=== PATIENT | male | born 1995 | race Asian ===

== ENCOUNTER → 2018-07-06 | Outpatient (CLI) | payer OTHER ==
--- NOTE | 2018-07-06 14:40 | RADIOLOGY REPORT (SQ) ---
EXAM DESCRIPTION: BARIUM SWALLOW ESOPHAGUS COMPLETED DATE/TIME: 07/06/2018 9:55 am REASON FOR STUDY: GERD (K21.9) K21.9 GASTRO-ESOPHAGEAL REFLUX DISEASE WITHOUT ESOPHAGITIS COMPARISON: None. TECHNIQUE: Under fluoroscopic guidance, patient ingested effervescent granules followed by thick and thin barium. Fluoroscopic spot images and routine radiographic images acquired and stored on PACS. 12 MM BARIUM TABLET GIVEN: The patient swallowed a 12 mm barium tablet which passed easily through th e esophagus and into the stomach without delay. LIMITATIONS: None. FLUOROSCOPY TIME: FLUORO TIME: 1.32 minutes 7 images saved to PACS. FINDINGS: NEUROMUSCULAR COORDINATION OF SWALLOW: Normal. No aspiration. ESOPHAGEAL MOTILITY: Normal peristalsis. No esophageal spasm. ESOPHAGEAL MUCOSA: Normal mucosa without masses or ulceration. GASTRO-ESOPHAGEAL JUNCTION: There is a small hiatal hernia present. Significant gastroesophageal ref lux was demonstrated. NON-GI TRACT STRUCTURES: No significant finding. OTHER: No other significant finding. IMPRESSION: SMALL HIATAL HERNIA WITH PROMINENT GASTROESOPHAGEAL REFLUX. OTHERWISE UNREMARKABLE STUD Y. RECOMMENDATION: NONE COMMENT: NONE Quality ID [id number]: Final reports for procedures using fluoroscopy that document radiation exposure alejandro liborio, or exposure time and number of fluorographic images (if radiation exposure indices are not avail able) TECHNICAL DOCUMENTATION: JOB ID: [id number] [employer]- All Rights Reserved Reading location - IP/workstation name: [email or web address] [id number]
== END ==
LOC: RAD 08:12
PROVIDERS: ATTEND Surgery
DX: K21.9 Gastro-esophageal reflux disease without esophagitis (principal)
CPT/HCPCS: 74220

== ENCOUNTER → 2018-07-13 | Day surgery (SDC) | payer OTHER ==
[~2018-07-13] MED LIST: LIDOCAINE 2% JELLY 5 ML TUBE ONE
== END ==
LOC: END 08:03
PROVIDERS: ATTEND Internal Medicine Gastroenterology
DX: K21.9 Gastro-esophageal reflux disease without esophagitis (principal)
CPT/HCPCS: 91010

== ENCOUNTER 2018-08-08 05:49 | Inpatient (IN) | payer OTHER ==
[2018-08-04 10:29] LABS: HEMATOCRIT 44.5 % (37.9-51.0); HEMOGLOBIN 15.3 g/dL (13.5-17.0); MEAN CORPUSCULAR HEMOGLOBIN 30.7 pg (27.0-33.4); MEAN CORPUSCULAR HGB CONC 34.4 g/dL (32.0-36.0); MEAN CORPUSCULAR VOLUME 89 fl (80-97); PLATELET COUNT 254 10^3/uL (150-450); RED BLOOD COUNT 4.97 10^6/uL (4.35-5.55); RED CELL DISTRIBUTION WIDTH 13.3 % (11.5-14.0); WHITE BLOOD COUNT 6.6 10^3/uL (4.0-10.5)
[2018-08-04 10:56] LABS: ANION GAP 13 (5-19); BLOOD UREA NITROGEN 13 mg/dL (7-20); CALCIUM 9.9 mg/dL (8.4-10.2); CARBON DIOXIDE 25 mmol/L (22-30); CHLORIDE 105 mmol/L (98-107); GLUCOSE 90 mg/dL (75-110); POTASSIUM 4.7 mmol/L (3.6-5.0); SODIUM 142.6 mmol/L (137-145)
[~2018-08-08 05:49] MED LIST changes: +ACETAMINOPHEN 325 MG TABLET PO PRN; +CEFOXITIN SODIUM 2 GM in DEXTROSE 5%-WATER 100 ML IV PRN; +LACTATED RINGERS 1000 ML IV PRN; +LIDOCAINE 0.5% INJ-PF (5 MG/ML) 50 ML SDV SUBCUT PRN; -LIDOCAINE 2% JELLY 5 ML TUBE ONE
[2018-08-08] MEDS ORDERED: ALBUTEROL SULFATE 0.083% NEB 2.5 MG/3 ML AMPUL NEB ONE (06:45)
[2018-08-08] MEDS ORDERED: BUPIVACAINE HCL 0.5 % INJ/PF 30 ML SDV ONE (06:55)
[2018-08-08] MEDS ORDERED: HYDROMORPHONE HCL INJ/PF 2 MG/ML AMPULE ONE (07:12)
[2018-08-08] MEDS ORDERED: ACETAMINOPHEN 1,000 MG/100 ML RTUPB IV ONE (07:13)
[2018-08-08] MEDS ORDERED: PROPOFOL INJ 200 MG/20 ML VIAL IV ONE (07:13)
[2018-08-08] MEDS ORDERED: FENTANYL CITRATE INJ/PF 100 MCG/2 ML AMPUL ONE (07:13)
[2018-08-08] MEDS ORDERED: MIDAZOLAM 2 MG/2 ML INJ ONE (07:13)
[2018-08-08] MEDS ORDERED: FAMOTIDINE INJ/PF 20 MG/2 ML SDV IV ONE (07:14)
[2018-08-08] MEDS ORDERED: PROMETHAZINE HCL INJ 25 MG/1 ML VIAL IV PRN (09:06)
[2018-08-08] MEDS ORDERED: MORPHINE SULFATE 10 MG/ML INJ IV PRN ×2 (09:06→11:53)
[2018-08-08] MEDS ORDERED: MEPERIDINE HCL/PF INJ 25 MG/1 ML DISP.SYRIN IV PRN (09:06)
[2018-08-08] MEDS ORDERED: DIPHENHYDRAMINE HCL 50 MG/ML VIAL IV PRN (09:06)
[2018-08-08] MEDS ORDERED: FENTANYL CITRATE INJ/PF 100 MCG/2 ML AMPUL IV PRN ×3 (09:06)
[2018-08-08] MEDS ORDERED: DEXTROSE 5%-LACTATED RINGERS 1,000 ML IV PRN (11:47)
[2018-08-08] MEDS ORDERED: ONDANSETRON HCL INJ/PF 4 MG/2 ML SDV IV PRN (11:47)
[2018-08-08] MEDS: FENTANYL CITRATE INJ/PF 100 MCG/2 ML AMPUL ONE ×2 (11:48→12:02)
[2018-08-08] MEDS ORDERED: HYDROCOD/ACETAMIN 7.5-325 MG/15 ML ORAL SOLN UDCUP PO PRN (11:52)
[2018-08-08] MEDS: HYDROMORPHONE HCL INJ/PF 2 MG/ML AMPULE ONE ×4 (12:16→12:50)
--- NOTE | 2018-08-08 12:16 | Operative Report ---
Nonrecallable Operative Report DATE OF SURGERY: 08/08/18 PREOPERATIVE DIAGNOSIS: 1. Refractory reflux. 2. Hiatal hernia. POSTOPERATIVE DIAGNOSIS: Same as above OPERATION: 1. Robot-assisted laparoscopic hiatal hernia repair with mesh. 2. Scott fundoplication. 3. EGD. SURGEON: JARED BECERRIL ANESTHESIA: GA TISSUE REMOVED OR ALTERED: None COMPLICATIONS: None apparent ESTIMATED BLOOD LOSS: Minimal PROCEDURE: Drains/implants: 10 x 6 cm Douglas Bio-A hiatal hernia mesh. Procedure in detail: After informed consent was obtained, the patient was brought to the operating room and laid in the supine position. The area of the abdomen was prepped and draped in normal sterile fashion. An incision was created approximately 2 cm superior and lateral to the umbilicus. Next, the dissection was carried through the subcutaneous tissue using sharp and blunt means. The anterior rectus sheath was incised sharply, the rectus muscle was spread, and the posterior sheath was incised sharply. The balloon trocar was inserted, and pneumoperitoneum was achieved. An 8 mm robotic trocar was placed in the left upper quadrant, right upper quadrant, and left lateral abdomen. A 5 mm trocar was placed in the right lateral abdomen. This was all done under direct laparoscopic visualization. The patient was placed in reverse Trendelenburg position. The liver retractor was placed through the 5 mm port. The left lobe of the liver was retracted anteriorly. Next the robot was brought over the patient and docked to the trochars. I then assumed my position at the surgeon's console. The dissection was begun at the pars flaccida. The pars flaccida was opened using electrocautery. The right júnior of the diaphragm was then identified and cleaned. This was done using judicious amounts of electrocautery and blunt dissection. The right júnior was cleaned from the anterior portion of the esophagus to the posterior extent of the defect. The dissection was carried laterally, to the left, in order to expose the bottom portion of the left júnior of the diaphragm. Once this was completed, attention was turned to division of the short gastrics. The stomach was elevated and the short gastrics were taken down from approximately the mid fundus up to the hiatus using the robotic vessel sealing device. Once this was completed, the posterior window was bluntly dissected. A [place] drain was then placed into the space posterior to the esophagus to aid in retraction. The anterior dissection was then undertaken , taking great care so as not to injure the vagus nerve. When the anterior dissection was completed, a 59 [place] bougie was placed into the esophagus as a place carlos. The 58 [place] bougie passed very easily into the esophagus. It was visualized to be within the esophagus via the laparoscopic camera. With the 58 [place] bougie in place, the esophagus was retracted laterally to the left and the posterior crura were reapproximated. 2-0 Ethibond suture were used in [id number] fashion to reapproximate the crura. Once this was completed a Douglas Bio-A hiatal hernia mesh was chosen to cover the repair. 1 cm was trimmed from the bottom, making the total measurement 6 x 10 cm. The mesh was placed over the crural repair. It was sutured to the repair using 2-0 Ethibond suture. It was sutured posteriorly and anteriorly. This was completed, the mesh was found to lie in good place. Next the fundoplication was undertaken. The fundus was passed posterior to the esophagus, leaving the 58 [place] bougie in place. A shoe-shine maneuver was performed. There was adequate room posterior to the esophagus to accommodate the fundus. There was found to be approximately 3 cm of intra-abdominal esophagus after the dissection and fundal wrap. The fundus was then sutured to the anterior esophagus and anterior stomach using 3-0 Ethibond suture. The first crural stitch incorporated the esophagus. 3 more sutures were used to complete the Scott fundoplication. Prior to the last suture being placed, the 58 [place] bougie was removed. The last suture was then placed into the fundoplication. The fundus was tacked to the hiatal hernia mesh using 3-0 Ethibond suture. An EGD was then undertaken. The flexible gastroscope was passed down the posterior oropharynx, down the esophagus, and into the stomach. The Z line appeared to lie within the intra- abdominal cavity. The scope slid easily through the hiatus. There was no obvious obstruction at the hiatus. The scope was passed into the stomach. Stomach was without obvious bleeding or defect. A retroflexion maneuver was performed, showing the fundoplication intact. The scope was then straightened, air was suctioned from the stomach, and the scope was pulled into the distal esophagus. The distal esophagus appeared normal without any melena, tears, or damage. It was pulled up the remainder of the esophagus, circumferentially noting the mucosa. The esophagus appeared normal, without injury. The scope was removed from the patient's oropharynx, and I scrubbed back into the case. The robot was undocked, the liver retractor was removed, and attention was turned to closure of the supraumbilical defect. The 12 mm trocar was removed. The defect was closed using 0 Vicryl suture in [id number] fashion with the Endo Close device. Once this was completed, the skin was closed using 4-0 Vicryl Rapide suture in subcuticular fashion. Dressings were placed, and the procedure was concluded. All sponge, instrument, and needle counts were correct x2. Condition: Stable.
[2018-08-08] MEDS ORDERED: ONDANSETRON HCL INJ/PF 4 MG/2 ML SDV ONE (13:32)
[2018-08-08] MEDS ORDERED: SUCCINYLCHOLINE CHLORIDE INJ 200 MG/10 ML VIAL ONE (13:32)
[2018-08-08] MEDS ORDERED: DEXAMETHASONE SOD PHOSPHATE INJ 4 MG/1 ML VIAL ONE (13:32)
[2018-08-08] MEDS ORDERED: GLYCOPYRROLATE 1 MG/5 ML SYRINGE ONE (13:32)
[2018-08-08] MEDS ORDERED: LIDOCAINE 2% INJ-PF (20 MG/ML) 2 ML AMPUL ONE (13:32)
[2018-08-08] MEDS ORDERED: ROCURONIUM BROMIDE INJ 50 MG/5 ML VIAL IV ONE (13:32)
[2018-08-08] MEDS ORDERED: NEOSTIGMINE METHYLSULFATE 10 MG/10 ML VIAL ONE (13:32)
[2018-08-08] MEDS: KETOROLAC TROMETHAMINE INJ/PF 30 MG/1 ML SDV IV SCH ×2 (14:25→21:42)
[2018-08-09] MEDS ORDERED: SIMETHICONE 80 MG TAB.CHEW PO PRN (05:32)
[2018-08-09] MEDS: KETOROLAC TROMETHAMINE INJ/PF 30 MG/1 ML SDV IV SCH ×3 (05:37→22:22)
[2018-08-09] MEDS ORDERED: SIMETHICONE 80 MG TAB.CHEW PO ONE (05:45)
[2018-08-09] MEDS ORDERED: LANSOPRAZOLE 30 MG TAB.RAP.DR PO SCH (06:00)
[2018-08-09 07:15] LABS: ABSOLUTE LYMPHOCYTES (AUTO) 1.7 10^3/uL (0.5-4.7); ABSOLUTE MONOCYTES (AUTO) 0.9 10^3/uL (0.1-1.4); ABSOLUTE NEUT (AUTO) 7.5 10^3/uL (1.7-8.2); BASOPHILS % (AUTO) 0.2 % (0-2); EOSINOPHILS % (AUTO) 0.4 % (0-6); HEMATOCRIT 41.4 % (37.9-51.0); HEMOGLOBIN 14.2 g/dL (13.5-17.0); LYMPHOCYTES % (AUTO) 16.8 % (13-45); MEAN CORPUSCULAR HEMOGLOBIN 30.9 pg (27.0-33.4); MEAN CORPUSCULAR HGB CONC 34.2 g/dL (32.0-36.0); MEAN CORPUSCULAR VOLUME 90 fl (80-97); MONOCYTES % (AUTO) 8.5 % (3-13); PLATELET COUNT 229 10^3/uL (150-450); RED BLOOD COUNT 4.58 10^6/uL (4.35-5.55); RED CELL DISTRIBUTION WIDTH 13.7 % (11.5-14.0); SEGMENTED NEUTROPHILS % (AUTO) 74.1 % (42-78); TOTAL CELLS COUNTED % (AUTO) 100 %; WHITE BLOOD COUNT 10.1 10^3/uL (4.0-10.5)
[2018-08-09 07:36] LABS: ANION GAP 12 (5-19); BLOOD UREA NITROGEN 7 mg/dL (7-20); CALCIUM 9.5 mg/dL (8.4-10.2); CARBON DIOXIDE 26 mmol/L (22-30); CHLORIDE 102 mmol/L (98-107); GLUCOSE 100 mg/dL (75-110); POTASSIUM 3.9 mmol/L (3.6-5.0); SODIUM 140.1 mmol/L (137-145)
--- NOTE | 2018-08-09 08:29 | RADIOLOGY REPORT (SQ) ---
EXAM DESCRIPTION: CHEST SINGLE VIEW COMPLETED DATE/TIME: 08/09/2018 8:12 am REASON FOR STUDY: pain with inspiration, s/p hiatal hernia repair COMPARISON: None. EXAM PARAMETERS: NUMBER OF VIEWS: One view. TECHNIQUE: Single frontal radiographic view of the chest acquired. RADIATION DOSE: NA LIMITATIONS: None. FINDINGS: LUNGS AND PLEURA: No opacities, masses or pneumothorax. No pleural effusion. MEDIASTINUM AND HILAR STRUCTURES: No masses. Contour normal. HEART AND VASCULAR STRUCTURES: Heart normal in size. Normal vasculature. BONES: No acute findings. HARDWARE: None in the chest. OTHER: No other significant finding. IMPRESSION: NO ACUTE RADIOGRAPHIC FINDING IN THE CHEST. TECHNICAL DOCUMENTATION: JOB ID: [id number] [employer]- All Rights Reserved Reading location - IP/workstation name: [email or web address]
[2018-08-09] MEDS ORDERED: ONDANSETRON HCL INJ/PF 4 MG/2 ML SDV IV PRN (10:30)
[2018-08-09] MEDS: HYDROCODONE/ACETAMINOPHEN 10-325 MG TABLET PO PRN ×2 (10:35→19:15)
--- NOTE | 2018-08-09 20:34 | PDOC PROGRESS REPORT ---
Subjective Progress Note for:: 08/09/18 Reason For Visit: S/P HIATAL HERNIA REPAIR Physical Exam Vital Signs: Temp Pulse Resp BP Pulse Ox 98.5 F 111 H 17 136/84 H 98 08/09/18 19:35 08/09/18 19:35 08/09/18 19:35 08/09/18 19:35 08/09/18 19:35 Intake & Output 08/08/18 08/09/18 08/10/18 06:59 06:59 06:59 Intake Total 0 4363 2018 Output Total 170 Balance 0 4193 2018 Weight 79.9 kg Results Laboratory Results: 08/09/18 06:22 08/09/18 06:22 08/09/18 08/09/18 06:22 06:22 WBC 10.1 RBC 4.58 Hgb 14.2 Hct 41.4 MCV 90 MCH 30.9 MCHC 34.2 RDW 13.7 Plt Count 229 Seg Neutrophils % 74.1 Lymphocytes % 16.8 Monocytes % 8.5 Eosinophils % 0.4 Basophils % 0.2 Absolute Neutrophils 7.5 Absolute Lymphocytes 1.7 Absolute Monocytes 0.9 Absolute Eosinophils 0.0 Absolute Basophils 0.0 Sodium 140.1 Potassium 3.9 Chloride 102 Carbon Dioxide 26 Anion Gap 12 BUN 7 Creatinine 0.67 Est GFR ( Amer) > 60 Est GFR (Non-Af Amer) > 60 Glucose 100 Calcium 9.5 Impressions: Chest X-Ray 08/09/18 06:00 IMPRESSION: NO ACUTE RADIOGRAPHIC FINDING IN THE CHEST. Assessment & Plan - Diagnosis (1) Hiatal hernia with gastroesophageal reflux Is this a current diagnosis for this admission?: Yes - Plan Summary Plan Summary: This is a 23-year-old male status post robot-assisted laparoscopic hiatal hernia repair with mesh and Scott fundoplication. The patient is swallowing very well. He is tolerating a full liquid diet. Patient still reports pain, requiring pain medications. He also reports abdominal distention. Patient does not feel like he is "ready to go home yet ". I will keep him 1 more day for pain control. I have encouraged him to ambulate. Plan for discharge home tomorrow.
[2018-08-10] MEDS ORDERED: LANSOPRAZOLE 30 MG TAB.RAP.DR PO SCH (06:00)
[2018-08-10] MEDS: KETOROLAC TROMETHAMINE INJ/PF 30 MG/1 ML SDV IV SCH (06:28)
--- NOTE | 2018-08-10 06:46 | PDOC DISCHARGE SUMMARY ---
General - Admit/Disc Date/PCP Admission Date/Primary Care Provider: 08/08/18 05:49 LINDA WHITE Discharge Date: 08/10/18 - Discharge Diagnosis (1) Hiatal hernia with gastroesophageal reflux Is this a current diagnosis for this admission?: Yes - Additional Information Discharge Diet: Full Liquids, Other (Comments) - No carbonated beverages Discharge Activity: No Lifting Over 10 Pounds Home Medications: Dexlansoprazole [Dexilant 60 mg Capsule] 60 mg PO DAILY 08/04/18 History of Present Illness History of Present Illness: SUNDAR BAIRD is a 23 year old male with refractory reflux and a hiatal hernia. The patient was admitted for definitive surgical treatment. The patient underwent robot-assisted laparoscopic hiatal hernia repair with mesh and Scott fundoplication. Patient was taken to the floor in stable condition. Hospital Course Hospital Course: After surgery, the patient was taken to the floor in stable condition. On postop day 0 he was given a clear liquid diet. On postoperative day #1 the patient was given a full liquid diet and tolerated this well. The patient did have some abdominal pain and a sensation of bloating on postoperative day 1. He denied any nausea or vomiting. The patient was observed 1 more day. On postoperative day #2, the patient's pain and bloating were much improved. The patient continued to tolerate a full liquid diet very well. By 08/10/2018 it was felt that the patient had reached maximal hospital benefit, and was medically fit for discharge. Physical Exam Vital Signs: Temp Pulse Resp BP Pulse Ox 98.6 F 85 17 126/75 H 98 08/10/18 00:02 08/10/18 00:02 08/10/18 00:02 08/10/18 00:02 08/10/18 00:02 Intake & Output 08/08/18 08/09/18 08/10/18 06:59 06:59 06:59 Intake Total 0 4363 2639 Output Total 170 Balance 0 4193 2639 Weight 79.9 kg 79 kg Results Laboratory Results: 08/09/18 06:22 08/09/18 06:22 08/09/18 08/09/18 06:22 06:22 WBC 10.1 RBC 4.58 Hgb 14.2 Hct 41.4 MCV 90 MCH 30.9 MCHC 34.2 RDW 13.7 Plt Count 229 Seg Neutrophils % 74.1 Lymphocytes % 16.8 Monocytes % 8.5 Eosinophils % 0.4 Basophils % 0.2 Absolute Neutrophils 7.5 Absolute Lymphocytes 1.7 Absolute Monocytes 0.9 Absolute Eosinophils 0.0 Absolute Basophils 0.0 Sodium 140.1 Potassium 3.9 Chloride 102 Carbon Dioxide 26 Anion Gap 12 BUN 7 Creatinine 0.67 Est GFR ( Amer) > 60 Est GFR (Non-Af Amer) > 60 Glucose 100 Calcium 9.5 Impressions: Chest X-Ray 08/09/18 06:00 IMPRESSION: NO ACUTE RADIOGRAPHIC FINDING IN THE CHEST. Qualifiers - * PATIENT BEING DISCHARGED WITH ANY OF THE FOLLOWING DIAGNOSIS: No Plan Discharge Plan: Discharge home. Diet: Full liquid diet, no carbonated beverages. Activity: No lifting greater than 10 pounds x 6 weeks after surgery. Fourmile 10/325 mg p.o. every 6 hours as needed for pain. Okay to shower. No tub baths times 2 weeks. Follow-up with me in 2 weeks (okay to follow-up by phone if patient is still out of town). Time Spent: Less than 30 Minutes
[2018-08-10 07:44] VITALS: BP 132/87
== END 2018-08-10 09:16 | disposition home or self-care (01) | DRG 328 ==
LOC: INOR 05:49 → INTOOBSV 05:49 → OBSVTOIN 05:49 → EDSTATUS 08:00 → 5 14:08
PROVIDERS: ADMIT Surgery; ATTEND Surgery
PROC: 0BUT4JZ Supplement Diaphragm with Synthetic Substitute, Percutaneous Endoscopic Approach (ICD-10-PCS; 2018-08-08)
PROC: 0DJ08ZZ Inspection of Upper Intestinal Tract, Via Natural or Artificial Opening Endoscopic (ICD-10-PCS; 2018-08-08)
PROC: 8E0W4CZ Robotic Assisted Procedure of Trunk Region, Percutaneous Endoscopic Approach (ICD-10-PCS; 2018-08-08)
PROC: 0DV44ZZ Restriction of Esophagogastric Junction, Percutaneous Endoscopic Approach (ICD-10-PCS; principal; 2018-08-08 08:00)
DX: K44.9 Diaphragmatic hernia without obstruction or gangrene (principal); K21.9 Gastro-esophageal reflux disease without esophagitis; Z79.899 Other long term (current) drug therapy; F17.200 Nicotine dependence, unspecified, uncomplicated
CPT/HCPCS: 36415; 71045; 790; 80048; 85025; 85027; 86850; 86900; 86901; C1781; J0131; J0330; J0694; J1100; J1170; J1200; J1885; J2250; J2405; J2704; J3010; J3490; S0028